=== PATIENT | female | born 1960 | race Caucasian/White ===

== ENCOUNTER 2017-08-25 17:02 | Inpatient (IN) ==
[2017-08-25] MEDS ORDERED: Acetaminophen/Codeine 300/30 MG Tablet PO ONE (18:02)
[2017-08-25] MEDS ORDERED: Ciprofloxacin 400 MG/200 ML 400 MG/200 ML PIGGYBACK IV.SIG ONE (18:04)
[2017-08-25] MEDS ORDERED: Clindamycin 600 mg/NS Premix 600 MG/50 ML PIGGYBACK IV.SIG ONE (18:05)
[2017-08-25] MEDS ORDERED: Sod Chloride 0.9% Inj 1,000 ML IV.SIG ONE (18:06)
--- NOTE | 2017-08-25 18:20 | ED ---
HPI General Chief Complaint: Animal Bite Stated Complaint: Animal Bite Time Seen by Provider: 08/25/17 17:52 Source: patient Mode of arrival: ambulatory Limitations: no limitations History of Present Illness HPI narrative: 67-year-old female presents emergency department for evaluation of a dog bite to the left index finger that occurred yesterday. Says she was bit by her dog yesterday and went to the urgent care facility who prescribed her antibiotics. Says the pharmacies are closed that she took the first antibiotic today. Says that she went back to urgent care this morning because of the increased swelling, pain and erythema. Says that they removed a suture that was in place and they recommended she go to the emergency department for further evaluation and IV antibiotics. Patient says that she is rather anxious because she had to cancel her cruise that she was due to go on tomorrow. Patient says that the pain is 7/10, nonradiating, aching and throbbing. Bending her finger increases her pain significantly and she says she has difficulty doing so because of the swelling. She denies fevers or chills. MD complaint: animal bite Animal: dog (patient's dog) Mechanism: bite Related Data Patient tetanus UTD: Yes (yesterday at urgent care) Home Medications Medication Instructions Recorded Confirmed levothyroxine 75 mcg PO DAILY 08/25/17 08/25/17 lisinopril 5 mg PO DAILY 08/25/17 08/25/17 pravastatin 20 mg PO HS 08/25/17 08/25/17 Allergies Allergy/AdvReac Type Severity Reaction Status Date / Time No Known Allergies Allergy Verified 08/25/17 21:29 Review of Systems Except as stated in HPI: all other systems reviewed are negative PMFSH Medical History Medical History Cyst in hand (Acute) HTN (hypertension) (Acute) High cholesterol (Acute) Hypothyroid (Acute) Surgical History Surgical History S/P LASIK surgery (Acute) S/P foot surgery, right (Acute) Social History Social History Substance History: No History of Abuse Second Hand Smoke Exposure: No Smoking Status: Never smoker How Often Do You Have a Drink Containing Alcohol: Monthly or less Recent Travel in [facility] within the Last 8 Weeks: No Recent Out of Country Travel within the Last 8 Weeks: No Immunization History Tetanus Immunization: <5 Years Hx Influenza Vaccine This Season: Yes Exam Narrative Exam Narrative: GENERAL: Well-developed well-nourished, anxious SKIN: Focused skin assessment warm/dry. HEAD: Atraumatic. Normocephalic. EYES: Pupils equal and round. No scleral icterus. No injection or drainage. ENT: No nasal bleeding or discharge. Mucous membranes pink and moist. NECK: Trachea midline. No JVD. CARDIOVASCULAR: Regular rate and rhythm. No murmur appreciated. RESPIRATORY: No accessory muscle use. Clear to auscultation. Breath sounds equal bilaterally. GASTROINTESTINAL: Abdomen soft, non-tender, nondistended. Hepatic and splenic margins not palpable. MUSCULOSKELETAL: No obvious deformities. No clubbing. No cyanosis. No edema. left index finger- edema with erythema to entire digit, small 4mm laceration, bleeding controlled, no exudate. lymphangiopathic spread to dorsal forearm, slight flexed position, unable to extend by passive or active ROM NEUROLOGICAL: Awake and alert. No obvious cranial nerve deficits. Motor grossly within normal limits. Normal speech. PSYCHIATRIC: Appropriate mood and affect; insight and judgment normal. Course Initial Documented Vital Signs Temperature 98.9 F 08/25/17 17:08 Pulse Rate 113 H 08/25/17 17:08 Respiratory Rate 16 08/25/17 17:08 Blood Pressure 142/85 H 08/25/17 17:08 Pulse Oximetry 100 08/25/17 17:08 Last Documented Vital Signs Temperature 98.5 F 08/26/17 08:00 Pulse Rate 75 08/26/17 08:00 Respiratory Rate 16 08/26/17 08:00 Blood Pressure 118/58 L 08/26/17 08:00 Pulse Oximetry 94 L 08/26/17 08:00 Medical Decision Making [facility] Narrative Medical decision making narrative: 57-year-old female presents emergency department for evaluation of left index finger pain after dog bite that occurred yesterday. She says that her own dog bit her yesterday and she went to urgent care who prescribed her antibiotics. She says that she took 1 dose of medication this morning as the pharmacies were closed last night. She says the left index finger has been increasing in pain, redness and swelling. Vital signs stable. I offered pain medication and she said hydrocodone and other strong pain medications do not usually work for her. Offered Tylenol #3. No relief. Ordered Toradol. Clindamycin and Cipro administered. Pt will be admitted for left index finger cellulitis. There is a concern for developing tenosynovitis/ Kanavel's sign. She has some movement of her PIP but is very limited. I spoke with Dr. Byrne who agreed with the admission. Hand consult upon admission. Differential Diagnosis Differential Diagnosis: Left index finger cellulitis, dog bite, laceration Lab Data Result diagrams: 08/26/17 05:18 08/26/17 05:18 Lab Results 08/25/17 08/25/17 08/26/17 Range/Units 18:35 18:35 05:18 WBC 9.1 5.1 (4.0-11.0) th/mm3 RBC 4.40 4.02 (4.00-5.30) mil/mm3 Hgb 13.1 12.1 (11.6-15.3) gm/dL Hct 39.7 36.2 (35.0-46.0) % MCV 90.2 90.0 (80.0-100.0) fL MCH 29.9 30.0 (27.0-34.0) pg MCHC 33.1 33.4 (32.0-36.0) % RDW 12.6 12.6 (11.6-17.2) % Plt Count 257 215 (150-450) th/mm3 MPV 8.9 9.1 (7.0-11.0) fL Neut % (Auto) 75.0 H 49.6 (16.0-70.0) % Lymph % (Auto) 16.1 36.4 (9.0-44.0) % [place] % (Auto) 8.1 H 11.6 H (0.0-8.0) % Eos % (Auto) 0.6 1.9 (0.0-4.0) % Baso % (Auto) 0.2 0.5 (0.0-2.0) % Neut # (Auto) 6.9 2.5 (1.8-7.7) th/mm3 Lymph # (Auto) 1.5 1.9 (1.0-4.8) th/mm3 [place] # (Auto) 0.7 0.6 (0.0-0.9) th/mm3 Eos # (Auto) 0.1 0.1 (0.0-0.4) th/mm3 Baso # (Auto) 0.0 0.0 (0.0-0.2) th/mm3 WBC Differential . . Differential Comment Auto diff final Auto diff final Sodium 138 (136-145) meq/L Potassium 3.9 (3.5-5.1) meq/L Chloride 103 (98-107) meq/L Carbon Dioxide 23.7 (21.0-32.0) meq/L Anion Gap 11 (5-15) meq/L BUN 11 (7-18) mg/dL Creatinine 0.92 (0.50-1.00) mg/dL Estimated GFR 63 L (>89) mL/min Random Glucose 92 (74-106) mg/dL Calcium 9.7 (8.5-10.1) mg/dL 08/26/17 Range/Units 05:18 WBC (4.0-11.0) th/mm3 RBC (4.00-5.30) mil/mm3 Hgb (11.6-15.3) gm/dL Hct (35.0-46.0) % MCV (80.0-100.0) fL MCH (27.0-34.0) pg MCHC (32.0-36.0) % RDW (11.6-17.2) % Plt Count (150-450) th/mm3 MPV (7.0-11.0) fL Neut % (Auto) (16.0-70.0) % Lymph % (Auto) (9.0-44.0) % [place] % (Auto) (0.0-8.0) % Eos % (Auto) (0.0-4.0) % Baso % (Auto) (0.0-2.0) % Neut # (Auto) (1.8-7.7) th/mm3 Lymph # (Auto) (1.0-4.8) th/mm3 [place] # (Auto) (0.0-0.9) th/mm3 Eos # (Auto) (0.0-0.4) th/mm3 Baso # (Auto) (0.0-0.2) th/mm3 WBC Differential Differential Comment Sodium 144 (136-145) meq/L Potassium 3.8 (3.5-5.1) meq/L Chloride 110 H (98-107) meq/L Carbon Dioxide 23.7 (21.0-32.0) meq/L Anion Gap 10 (5-15) meq/L BUN 11 (7-18) mg/dL Creatinine 0.91 (0.50-1.00) mg/dL Estimated GFR 63 L (>89) mL/min Random Glucose 79 (74-106) mg/dL Calcium 8.8 D (8.5-10.1) mg/dL Discharge Plan Discharge Disposition Patient Disposition: 30 Still Patient Discharge Condition Condition: Stable Discharge Details Diagnosis: Dog bite, Cellulitis Physicians Team ED Provider: John Contreras ED Midlevel Provider: Leonora Pearl Primary Care Provider: Kendrick Hernandez Attending Provider: Edmund Byrne Other Providers: Darion Blount Status ED Status: Left Department Discharge Information Discharge Date/Time: 08/25/17 22:48
[2017-08-25 19:38] LABS: Baso % (Auto) 0.2 % (0.0-2.0); Eos # (Auto) 0.1 th/mm3 (0.0-0.4); Eos % (Auto) 0.6 % (0.0-4.0); Hematocrit 39.7 % (35.0-46.0); Hemoglobin 13.1 gm/dL (11.6-15.3); Lymph # (Auto) 1.5 th/mm3 (1.0-4.8); Lymph % (Auto) 16.1 % (9.0-44.0); Mean Corpuscular HGB Conc 33.1 % (32.0-36.0); Mean Corpuscular Hemoglobin 29.9 pg (27.0-34.0); Mean Corpuscular Volume 90.2 fL (80.0-100.0); Mean Platelet Volume 8.9 fL (7.0-11.0); Mono # (Auto) 0.7 th/mm3 (0.0-0.9); Mono % (Auto) 8.1 % (0.0-8.0); Neut # (Auto) 6.9 th/mm3 (1.8-7.7); Platelet Count 257 th/mm3 (150-450); Red Cell Distribution Width 12.6 % (11.6-17.2); White Blood Count 9.1 th/mm3 (4.0-11.0)
[2017-08-25 20:04] LABS: Calcium 9.7 mg/dL (8.5-10.1); Carbon Dioxide 23.7 meq/L (21.0-32.0); Potassium 3.9 meq/L (3.5-5.1)
[2017-08-25] MEDS ORDERED: Ketorolac Inj 30 MG/ML (IVP) Vial IV.PUSH ONE (20:51)
[2017-08-25] MEDS ORDERED: Temazepam 15 MG Capsule PO PRN (21:46)
--- NOTE | 2017-08-25 22:13 | P.HPIM ---
History of Present Illness Primary Care Physician: Kendrick Hernandez MD Chief Complaint: dog bite History of Present Illness: Patient is a pleasant 67-year-old female with history of hypertension, hypothyroidism, and hyperlipidemia. Patient was bit by her dog yesterday at the distal aspect of her left index finger when patient attempted to take away a bone. Patient reports that her dog is up-to-date on all shots. Patient was seen in urgent care center and prescribed antibiotic. However, patient took only 1 dose of antibiotic today. Patient reports that over the last 24 hours she has had increased pain, redness , and swelling of her left second finger. Patient states that his suture was removed today and she was advised to come to the ER for further evaluation and IV antibiotics. Patient states that redness with going up the anterior aspect of her left forearm. Patient complains of severe pain and difficulty bending her second digit. Patient denies fever chills. Hand surgeon has been consulted by the ER. Patient will be continued on IV antibiotics. Patient will be admitted to [facility] for further evaluation treatment. PMH - Htn - hypothyroid - hyperlipidemia - plantar fascitis PSH - Right foot surgery for plantar fascitis, performed by Dr. 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 [employer] - Never a smoker - No alcohol - No illicit street drugs ALL: NKDA - Diagnosis (1) Dog bite (2) Cellulitis Review of Systems Constitutional: Denies anorexia, Denies body ache(s), Denies chills, Denies fever(s), Denies night sweats, Denies poor appetite, Denies weight gain, Denies weight loss Eyes: Denies blind spots, Denies blurry vision, Denies change in vision, Denies double vision, Denies discharge, Denies loss of peripheral vision, Denies loss of vision, Denies other visual disturbances, Denies pain Ears, Nose, Mouth, and Throat: Denies bleeding gums, Denies difficulty swallowing, Denies dizziness, Denies headache(s), Denies hearing loss, Denies pain with swallowing, Denies poor balance, Denies ringing in the ears, Denies sore throat, Denies throat swelling, Denies tongue swelling Cardiovascular: Denies chest pain, Denies excessive sweating, Denies fainting, Denies fast heart rate, Denies generalized swelling, Denies irregular heart rhythm, Denies leg swelling, Denies lightheadedness, Denies slow heart rate Respiratory: Denies cough, Denies shortness of breath, Denies snoring, Denies wheezing Gastrointestinal: Denies abdominal pain, Denies belching, Denies black, tarry stools, Denies bright, red blood in stools, Denies change in bowel habits, Denies change in stools, Denies coffee ground vomit, Denies constipation, Denies cramping, Denies difficulty swallowing, Denies heartburn, Denies incontinent of stools, Denies loose stools, Denies nausea, Denies pain with swallowing, Denies vomiting, Denies vomiting blood Genitourinary: Denies abnormal vaginal bleeding, Denies blood in urine, Denies difficulty starting urination, Denies difficulty urinating, Denies frequent nighttime urination, Denies painful urination, Denies pelvic pain, Denies side pain, Denies urinary incontinence, Denies urinary hesitancy, Denies urinary urgency Musculoskeletal: Denies abnormal walking, Denies back pain, Denies body aches, Denies decreased muscle mass, Denies joint pain, Denies joint swelling, Denies muscle weakness, Denies neck pain, Denies numbness, Denies stiffness, Denies tingling Skin/Breast: Denies bleeding lesions, Denies change in skin color, Denies changing lesions, Denies itching, Denies lesions, Denies new lesions, Denies non -healing lesions, Denies redness, Denies sensitivity to light, Denies rash, Denies skin pain, Denies skin swelling, Denies skin ulcer, Denies sores, Denies unusual bruising, Denies wounds, Denies yellowing of the skin Neurologic: Denies abnormal hearing, Denies abnormal movements, Denies abnormal speech, Denies abnormal walking, Denies behavioral changes, Denies burning sensations, Denies confusion, Denies dizziness, Denies fainting, Denies frequent falls, Denies headache(s), Denies lack of coordination, Denies localized weakness, Denies loss of vision, Denies memory loss, Denies numbness, Denies other visual disturbances, Denies radiating pain, Denies restless legs, Denies convulsions, Denies seizure-like activity, Denies sensory deficit, Denies tingling/numbness/burning sensations, Denies tremor(s), Denies unsteadiness, Denies weakness Psychiatric: Denies abnormal sleep pattern, Denies anxiety, Denies behavioral changes, Denies change in appetite, Denies confusion, Denies depression, Denies difficulty concentrating, Denies hearing things others do not hear, Denies irritability, Denies lack of enjoyment, Denies memory loss, Denies mood swings, Denies panic attacks, Denies paranoia, Denies seeing things others do not see, Denies thoughts of hurting/killing others, Denies thoughts of hurting/killing yourself Endocrine: Denies cold intolerance, Denies excessive sweating, Denies fatigue, Denies flushing, Denies heat intolerance, Denies increased hunger, Denies increased thirst, Denies increased urination, Denies rapid, pounding, or irregular heartbeat Hematologic/Lymphatic: Denies easy bleeding, Denies easy bruising, Denies enlarged lymph nodes Allergic/Immunologic: Denies hives, Denies lip swelling, Denies throat swelling , Denies wheezing PMFSH - History History Provided By: Patient - Medical History Medical History: Medical History (Last Updated 08/25/17 @ 18:01 by [facility]) Cyst in hand HTN (hypertension) High cholesterol Hypothyroid - Surgical History Surgical History: Surgical History (Last Updated 08/25/17 @ 18:01 by [facility]) S/P LASIK surgery S/P foot surgery, right - Tobacco History Second Hand Smoke Exposure: No Tobacco Use In Past 30 Days: No Smoking Status: Never smoker - Alcohol History How Often Do You Have a Drink Containing Alcohol: Monthly or less - Substance Use History Substance History: No History of Abuse - Travel History Recent Travel in the [place] Within the Last 8 Weeks: No Recent Travel Out of the Country Within the Last 8 Weeks: No - Immunization History Tetanus Immunization: <5 Years Hx Influenza Vaccine This Season: Yes Medications and Allergies Active Medications: Active Medications Al Hydroxide/Mg Hydroxide (Milk Of Magnesia Liq) 30 ml PO Q12H PRN PRN Reason: Mild Constipation Clindamycin/Sodium Chloride (Cleocin 600 Mg/Ns Premix) 600 mg in 50 mls @ 100 mls/hr IV.SIG Q8H JASIEL Ketorolac Tromethamine (Toradol Inj) 30 mg IV.PUSH Q6H PRN PRN Reason: PAIN 6-10;IF UNABLE TO TAKE PO Levothyroxine Sodium (Synthroid) 75 mcg PO DAILY JASIEL Lisinopril (Prinivil) 5 mg PO DAILY JASIEL Ondansetron HCl (Zofran Inj) 4 mg IV.PUSH Q6H PRN PRN Reason: NAUSEA OR VOMITING Oxycodone/Acetaminophen (Percocet 7.5/325 Mg) 1 tab PO Q6H PRN PRN Reason: pain 1-5 Pravastatin Sodium (Pravachol) 20 mg PO HS JASIEL Senna/Docusate Sodium (Chelsea-Colace) 1 tab PO BID JASIEL Temazepam (Restoril) 15 mg PO HS PRN PRN Reason: INSOMNIA Allergies Allergy/AdvReac Type Severity Reaction Status Date / Time No Known Allergies Allergy Verified 08/25/17 21:29 Home Medications Medication Instructions Recorded Confirmed Type levothyroxine 75 mcg PO DAILY 08/25/17 08/25/17 History lisinopril 5 mg PO DAILY 08/25/17 08/25/17 History pravastatin 20 mg PO HS 08/25/17 08/25/17 History Exam Vital signs: Vital Signs 08/25/17 17:08 Temperature 98.9 F Pulse Rate 113 H Respiratory Rate 16 Blood Pressure 142/85 H Pulse Oximetry 100 Intake & Output 08/25/17 08/25/17 08/26/17 06:59 18:59 06:59 Weight 67.132 kg Narrative: GENERAL: This is a well-nourished, well-developed patient, in no apparent distress. CARDIOVASCULAR: Regular rate and rhythm without murmurs, gallops, or rubs. RESPIRATORY: Clear to auscultation. Breath sounds equal bilaterally. No wheezes , rales, or rhonchi. GASTROINTESTINAL: Abdomen soft, non-tender, nondistended. Normal active bowel sounds MUSCULOSKELETAL: Extremities without clubbing, cyanosis, or edema. NEURO: Alert & Oriented x4 to person, place, time, situation. Moves all ext x4 EXT: erythema and edema at right second digit. There are markings at the anterior surface of pt's left forearm but currently no erythema. Per pt there erythema tracking up the right forearm earlier in the day 08/25 Results - Labs CBC & Chem 7: 08/25/17 18:35 08/25/17 18:35 Labs: Short CBC 08/25/17 Range/Units 18:35 WBC 9.1 (4.0-11.0) th/mm3 Hgb 13.1 (11.6-15.3) gm/dL Hct 39.7 (35.0-46.0) % Plt Count 257 (150-450) th/mm3 BMP 08/25/17 18:35 Sodium 138 Potassium 3.9 Chloride 103 Carbon Dioxide 23.7 BUN 11 Creatinine 0.92 Calcium 9.7 Caprini VTE Risk Assessment Caprini VTE Risk Assessment: No/Low Risk (score <= 1) Caprini Risk Assessment Model: Point Value = 1 Point Value = 2 Point Value = 3 Point Value = 5 Age 41-60 Minor surgery BMI > 25 kg/m2 Swollen legs Varicose veins or History of unexplained or recurrent spontaneous Oral contraceptives or hormone replacement Sepsis (< 1 month) Serious lung disease, including pneumonia (< 1 month) Abnormal pulmonary function Acute myocardial infarction Congestive heart failure (< 1 month) History of inflammatory bowel disease Medical patient at bed rest Age 61-74 Arthroscopic surgery Major open surgery (> 45 min) Laparoscopic surgery (> 45 min) Malignancy Confined to bed (> 72 hours) Immobilizing plaster cast Central venous access Age >= 75 History of VTE Family history of VTE Factor V Leiden Prothrombin [id number] Lupus anticoagulant Anticardiolipin antibodies Elevated serum homocysteine Heparin-induced thrombocytopenia Other congenital or acquired thrombophilia Stroke (< 1 month) Elective arthroplasty Hip, pelvis, or leg fracture Acute spinal cord injury (< 1 month) Prophylaxis Regimen: Total Risk Factor Score Risk Level Prophylaxis Regimen 0-1 Low Early ambulation 2 Moderate Order ONE of the following: *Sequential Compression Device (SCD) *Heparin 5000 units SQ BID 3-4 Higher Order ONE of the following medications: *Heparin 5000 units SQ TID *Enoxaparin/Lovenox 40 mg SQ daily (WT < 150 kg, CrCl > 30 mL/min) *Enoxaparin/Lovenox 30 mg SQ daily (WT < 150 kg, CrCl > 10-29 mL/min) *Enoxaparin/Lovenox 30 mg SQ BID (WT < 150 kg, CrCl > 30 mL/min) AND/OR *Sequential Compression Device (SCD) 5 or more Highest Order ONE of the following medications: *Heparin 5000 units SQ TID (Preferred with Epidurals) *Enoxaparin/Lovenox 40 mg SQ daily (WT < 150 kg, CrCl > 30 mL/min) *Enoxaparin/Lovenox 30 mg SQ daily (WT < 150 kg, CrCl > 10-29 mL/min) *Enoxaparin/Lovenox 30 mg SQ BID (WT < 150 kg, CrCl > 30 mL/min) AND *Sequential Compression Device (SCD) Assessment and Plan - Assessment (1) Dog bite Code(s): W54.0XXA - Bitten by dog, initial encounter Status: Acute Plan: Patient is a pleasant 67-year-old female with history of hypertension, hypothyroidism, and hyperlipidemia. Patient was bit by her dog yesterday at the distal aspect of her left index finger when patient attempted to take away a bone. Patient reports that her dog is up-to-date on all shots. Patient was seen in urgent care center and prescribed antibiotic. However, patient took only 1 dose of antibiotic today. Patient reports that over the last 24 hours she has had increased pain, redness , and swelling of her left second finger. Patient states that his suture was removed today and she was advised to come to the ER for further evaluation and IV antibiotics. Patient states that redness with going up the anterior aspect of her left forearm. Patient complains of severe pain and difficulty bending her second digit. Patient denies fever chills. Hand surgeon has been consulted by the ER. Patient will be continued on IV antibiotics. Patient will be admitted to [facility] for further evaluation treatment. - possible tenosynovitis - Await Consultation by hand surgeon - continue IV clindamycin - toradol/percocet prn pain - NPO after MN - SCDs for DVT prophylaxis - supportive care HTN - continue outpt lisinopril Hypothyroid - continue levothyroxine Hyperlipidemia - continue statin (2) Cellulitis Code(s): L03.90 - Cellulitis, unspecified Status: Acute Plan: - see above (1) Dog bite Qualifiers: Encounter type: subsequent encounter Qualified Code(s): W54.0XXD - Bitten by dog, subsequent encounter (2) Cellulitis Qualifiers: Site of cellulitis: extremity Site of cellulitis of extremity: finger Laterality: left Qualified Code(s): L03.012 - Cellulitis of left finger
--- NOTE | 2017-08-25 23:10 | MB ---
cc: Darion Blount MD, Srikanth MD DATE: 08/25/2017 REASON FOR CONSULTATION: Dog bite and infection left index finger. HISTORY OF PRESENT ILLNESS: The patient is a 67-year-old right-hand dominant female who presented to the ED with complaints of dog bite to the left index finger yesterday. The patient states she was bitten by her own dog at 2 p.m. yesterday. The patient was seen initially at an outside urgent care. She was put on p.o. antibiotics and she presented to the ED today with worsening symptoms of pain, swelling and redness involving the left index finger. The patient states she had suturing of the laceration at urgent care and had sutures removed. She also complains of redness, streaking to the forearm region. Denies any fever. Denies any chills. Denies any numbness. PAST MEDICAL HISTORY: Significant for hypertension and hypothyroidism. PAST SURGICAL HISTORY: Significant for right foot surgery and removal of cyst from the right hand. LABORATORY DATA: Her lab work was reviewed. She has a white count of 9.1 and neutrophil shift of 75%. PHYSICAL EXAMINATION: The patient is alert and oriented x3. Examination of his left index finger reveals dog bite wounds over the volar and radial aspect of the pulp region of the index finger. The left index finger is swollen diffusely with redness extending to the A1 du region. Diffuse tenderness noted along the flexor tendon sheath and over the dorsal aspect of the finger. Range of motion of the index finger is limited and painful. She has intact distal circulation. She has intact distal sensation. She also has some streaking erythema over the volar aspect of the distal forearm. No drainage noted from the bite wounds. She also has multiple bite mckenna over the dorsal aspect of the finger. ASSESSMENT: A 57-year-old female with a dog bite to the left index finger with questionable flexor tenosynovitis. PLAN: Take the patient emergently for incision and drainage of flexor tendon sheath, left index finger. The patient been explained the risk and benefits of the procedure. We will continue with IV antibiotics and limb elevation. Darion Blount MD SE/ , 10:52 PM , 11:10 PM
[2017-08-26] MEDS: Clindamycin 600 mg/NS Premix 600 MG/50 ML PIGGYBACK IV.SIG SCH ×3 (05:13→21:01)
[2017-08-26] MEDS: Levothyroxine 75 MCG Tablet PO SCH (05:13)
[2017-08-26 07:17] LABS: Baso % (Auto) 0.5 % (0.0-2.0); Eos # (Auto) 0.1 th/mm3 (0.0-0.4); Eos % (Auto) 1.9 % (0.0-4.0); Hematocrit 36.2 % (35.0-46.0); Hemoglobin 12.1 gm/dL (11.6-15.3); Lymph # (Auto) 1.9 th/mm3 (1.0-4.8); Lymph % (Auto) 36.4 % (9.0-44.0); Mean Corpuscular HGB Conc 33.4 % (32.0-36.0); Mean Platelet Volume 9.1 fL (7.0-11.0); Mono # (Auto) 0.6 th/mm3 (0.0-0.9); Mono % (Auto) 11.6 % (0.0-8.0); Neut # (Auto) 2.5 th/mm3 (1.8-7.7); Neut % (Auto) 49.6 % (16.0-70.0); Platelet Count 215 th/mm3 (150-450); Red Blood Count 4.02 mil/mm3 (4.00-5.30); Red Cell Distribution Width 12.6 % (11.6-17.2); White Blood Count 5.1 th/mm3 (4.0-11.0)
[2017-08-26 07:40] LABS: Calcium 8.8 mg/dL (8.5-10.1); Carbon Dioxide 23.7 meq/L (21.0-32.0); Potassium 3.8 meq/L (3.5-5.1)
[2017-08-26] MEDS ORDERED: Neomycin/Polymyxin G.U. Irrigant 1 ML Ampul ONE (09:59)
[2017-08-26] MEDS ORDERED: Lidocaine PF 2% Inj 10 ML Ampul ONE (10:27)
[2017-08-26] MEDS ORDERED: Bupivacaine PF 0.5% Inj 30 ML Vial ONE (10:27)
[2017-08-26] MEDS ORDERED: Ampicillin/Sulbactam Inj 3 GM in Sodium Chloride 0.9% Inj 100 ML IV.SIG ONE (11:00)
--- NOTE | 2017-08-26 11:18 | P.OP ---
- Preoperative Diagnosis (1) Infected dog bite of left index finger (2) Infection of flexor tendon sheath Comment: left index finger - Postoperative Diagnosis (1) Infected dog bite of left index finger (2) Infection of flexor tendon sheath Comment: left index finger Date of procedure: 08/26/17 Procedure: incision and drainage of left index finger pulp flexor tendon sheath wash and drainage left index finger Anesthesia: GETA Surgeon: Darion Blount MD Estimated blood loss (mL): 5 Tourniquet time (min): 35 Pathology: other (swab 1. left index pulp. swab 2. flexor tendon sheath left index finger)
[2017-08-26] MEDS ORDERED: *Meperidine Inj 25 MG/ML Vial PERIprocedural Use ONLY ONE (11:20)
[2017-08-26] MEDS ORDERED: fentaNYL Citrate Inj 100 MCG/2 ML Ampul ONE (11:25)
[2017-08-26] MEDS ORDERED: Lidocaine PF 1% Inj 5 ML Syringe INFILTRATN ONE (12:00)
[2017-08-26] MEDS ORDERED: Phenylephrine/NS 1000 MCG/10ML Syringe IV.PUSH ONE (12:00)
[2017-08-26] MEDS ORDERED: Ketorolac Inj 30 MG/ML (IVP) Vial IV.PUSH ONE (12:00)
[2017-08-26] MEDS: Senna/Docusate Sodium 8.6/50 MG Tablet PO SCH ×2 (12:28→20:54)
[2017-08-26] MEDS: Lisinopril 5 MG Tablet PO SCH (12:29)
--- NOTE | 2017-08-26 12:29 | MP ---
cc: Darion Blount MD DATE OF OPERATION: 08/26/2017 DATE OF SURGERY: 08/26/2017 PREOPERATIVE DIAGNOSIS: Dog bite with infection of left index finger with flexor tendon sheath involvement. POSTOPERATIVE DIAGNOSIS: Dog bite with infection of left index finger pulp and infection of the flexor tendon sheath left index finger. PROCEDURE PERFORMED: Incision and drainage, left index finger pulp and wash and drainage, left index finger flexor tendon sheath. SURGEON: Darion Blount MD ANESTHESIA: General. ESTIMATED BLOOD LOSS: 5 mL. TOURNIQUET TIME: 35 minutes at 250 mmHg. SPECIMENS: Specimen was sent for culture and sensitivity and Gram stain. The first wall swab from the left index finger pulp. The second swab was from the flexor tendon sheath, left index finger from the palm. DISPOSITION: To PACU stable. INDICATIONS FOR PROCEDURE: The patient is a 57-year-old right-hand dominant female who presented to the ED with complaints of a dog bite to the left index finger with infection for the past 2 days. She was seen at urgent care and had suturing of laceration. She presented with pain, swelling, and redness involving the left index finger. On examination, she had flexion deformity of the left index finger with associated swelling and redness. She had diffuse tenderness along the flexor tendon sheath and range of motion of the index finger was limited and painful. She had bite wounds over the left index finger pulp. Clinically, she was diagnosed with left index finger infection with flexor tendon sheath involvement. She was consented for incision and drainage of the left index finger along with drainage of the flexor tendon sheath. The patient was explained the risks and benefits of the procedure. PROCEDURE IN DETAIL: The patient was brought to the operating room under general anesthesia. The left upper extremity was sterilely prepped and draped. Incision site was marked along the volar aspect of the distal interphalangeal joint in a zigzag fashion, incorporating the bite wound, which was along the radial aspect of the pulp. Another incision site was marked in an oblique fashion at the proximal aspect of the A1 du region of the index finger, measuring about 2 cm. After limb elevation, tourniquet was inflated to 250 mmHg. Attention was initially directed to the pulp region. Incision was made over the proposed incision site. The laceration was incorporated in the incision and skin flaps were elevated. There was evidence of purulent material within the pulp region. The material was sent for culture and sensitivity. On further exploration, there was involvement of the flexor tendon sheath with purulence within the flexor tendon sheath. The flexor tendon sheath was opened distal to the A4 du with evidence of purulent material in the region. The decision was made to proceed with drainage of flexor tendon sheath. An incision was made over the A1 du region of the index finger. Soft tissue dissection was carried out, exposing the A1 du. The A1 du was released in a proximal to distal direction. There was evidence of purulent material within the flexor tendon sheath with inflamed tenosynovium. Excisional debridement of flexor tenosynovium was carried out. Thorough wash of the wound and the pulp was initially carried out using normal saline mixed with irrigant. This was then followed by proximal to distal and drainage of the flexor tendon sheath using a vein cannula, about 500 mL were used until the effluent coming from the distal aspect of the incision was clear. A total liter of solution was used. Packing of the wounds were carried out with 1/4-inch iodoform packing material. The skin flaps were loosely approximated using 5-0 nylon in a horizontal mattress interrupted fashion. Tourniquet was deflated at 35 minutes. The patient had good distal circulation after release of the tourniquet. A bulky hand dressing was applied which was held in place by Sof-Rol and bias hand wrap. The patient was recovered and sent to recovery in stable condition. We will keep the limb elevated and continue the IV antibiotics and change the packing tomorrow. Darion Blount MD SE/ALINA , 11:23 AM , 12:27 PM
[2017-08-26] MEDS: Ketorolac Inj 30 MG/ML (IVP) Vial IV.PUSH PRN (14:50)
--- NOTE | 2017-08-26 15:37 | P.PNIM ---
Subjective Interval history: Pt underwent I&D of the left index finger infection today Pain is currently well controlled Physical Exam Vital signs: Vital Signs 08/25/17 17:08 08/25/17 20:55 08/25/17 21:16 Temperature 98.9 F 98 F Pulse Rate 113 H 94 H 93 H Respiratory Rate 16 16 18 Blood Pressure 142/85 H 134/61 128/60 Pulse Oximetry 100 97 97 08/26/17 00:00 08/26/17 04:00 08/26/17 08:00 Temperature 98.2 F 97.8 F 98.5 F Pulse Rate 91 H 76 75 Respiratory Rate 16 16 16 Blood Pressure 132/60 124/69 118/58 L Pulse Oximetry 98 97 94 L 08/26/17 11:20 08/26/17 11:30 08/26/17 11:45 Temperature 97.8 F Pulse Rate 110 H 91 H 85 Respiratory Rate 12 14 14 Blood Pressure 120/64 135/67 125/67 Pulse Oximetry 98 99 100 08/26/17 12:00 Temperature 97.3 F L Pulse Rate 84 Respiratory Rate 16 Blood Pressure 127/58 L Pulse Oximetry 98 Intake & Output 08/25/17 08/26/17 08/26/17 18:59 06:59 18:59 Intake Total 50 / 50 500 / 500 Output Total 5 / 5 Balance 50 / 50 495 / 495 Weight 67.132 kg 67.4 kg Intake: IV 50 / 50 Cleocin 600 mg/NS Premix 600 mg 50 / 50 In 50 ml @ 100 mls/hr IV.SIG Q8H JASIEL Rx#:[id number] Oral 0 / 0 Anesthesia Amount 500 / 500 Output: Estimated Blood Loss 5 / 5 Other: # Voids 0 # Bowel Movements 0 Weight On Admission 66.8 kg Narrative: GENERAL: NAD, AAOx3 CARDIO: Regular RESP: Breath sounds equal bilaterally. ABD: +BS, soft, non-tender, nondistended. EXT: Left hand bandages are c/d/i Results - Labs CBC & Chem 7: 08/26/17 05:18 08/26/17 05:18 Assessment and Plan - Assessment (1) Dog bite Code(s): W54.0XXA - Bitten by dog, initial encounter Status: Acute Plan: Dog Bite Left index finger infection, possible tenosynovitis - Patient is a 67 y/o female with hypertension, hypothyroidism, and hyperlipidemia. - Patient was bit by her dog prior to admission at the distal aspect of her left index finger when patient attempted to take away a bone. Patient reports that her dog is up-to-date on all shots. Patient was seen in urgent care center the wound was sutured and she was prescribed antibiotic. However, patient took only 1 dose of antibiotic the day of admission. Patient reported that she had increased pain, redness, and swelling of her left second finger. Patient states that his suture was removed the day of admission and she was advised to come to the ER for further evaluation and IV antibiotics. - Pt was started on IV Clindamycin at admission - Hand surgeon was consulted - Pt underwent incision and drainage of left index finger pulp and wash and drainage and left index finger flexor tendon sheath. - continue IV clindamycin - Toradol/Percocet prn pain - SCDs for DVT prophylaxis - Supportive care HTN - continue outpt lisinopril Hypothyroid - continue levothyroxine Hyperlipidemia - continue statin (2) Cellulitis Code(s): L03.90 - Cellulitis, unspecified Status: Acute Plan: - see above - Attending Attestation Patient examined. Assessment and plan formulated with Cristina Kaplan PA-C. I agree with the above. (1) Dog bite Qualifiers: Encounter type: subsequent encounter Qualified Code(s): W54.0XXD - Bitten by dog, subsequent encounter (2) Cellulitis Qualifiers: Site of cellulitis: extremity Site of cellulitis of extremity: finger Laterality: left Qualified Code(s): L03.012 - Cellulitis of left finger
--- NOTE | 2017-08-26 16:50 | OTSOAPIP ---
TIME SESSION COMPLETED: 1220 RECEIVED OCCUPATIONAL THERAPY ORDERS FOR EVALUATION. UPON ARRIVAL, PATIENT JUST RETURNING FROM PROCEDURE FOR LEFT SECOND DIGIT. PATIENT WITH SIGNIFICANT BANDAGING OVER ENTIRE LEFT HAND AND WRIST. WILL ALLOW PATIENT TO REST AT THIS TIME AND REATTEMPT NEXT DAY. WILL AWAIT FURTHER CLARIFICATION ORDERS FROM PHYSICIANS FOR TREATMENT OF LEFT SECOND DIGIT AND ANY RESTRICTIONS. INTERDISCIPLINARY COMMUNICATION: REVIEWED ELECTRONIC MEDICAL RECORD Therapist: BHARTI Owen/Ino Signature on file
[2017-08-27] MEDS: Ketorolac Inj 30 MG/ML (IVP) Vial IV.PUSH PRN (04:05)
[2017-08-27] MEDS: Levothyroxine 75 MCG Tablet PO SCH (05:07)
[2017-08-27] MEDS: Clindamycin 600 mg/NS Premix 600 MG/50 ML PIGGYBACK IV.SIG SCH ×3 (05:07→21:15)
[2017-08-27] MEDS: Lisinopril 5 MG Tablet PO SCH (09:32)
[2017-08-27] MEDS: Senna/Docusate Sodium 8.6/50 MG Tablet PO SCH ×2 (09:32→20:39)
--- NOTE | 2017-08-27 10:30 | P.PNIM ---
Subjective Interval history: Pt without any new complaints She is anxious for discharge but is understanding if she needs to stay longer for continued surgical monitoring. Physical Exam Vital signs: Vital Signs 08/26/17 11:20 08/26/17 11:30 08/26/17 11:45 Temperature 97.8 F Pulse Rate 110 H 91 H 85 Respiratory Rate 12 14 14 Blood Pressure 120/64 135/67 125/67 Pulse Oximetry 98 99 100 08/26/17 12:00 08/26/17 16:00 08/26/17 20:00 Temperature 97.3 F L 98.5 F 97.6 F Pulse Rate 84 88 108 H Respiratory Rate 16 16 17 Blood Pressure 127/58 L 104/59 L 114/59 L Pulse Oximetry 98 94 L 96 08/27/17 00:00 08/27/17 04:00 08/27/17 08:00 Temperature 98.2 F 97.8 F 97.0 F L Pulse Rate 71 90 79 Respiratory Rate 16 16 16 Blood Pressure 109/55 L 116/59 L 124/57 L Pulse Oximetry 96 99 97 Intake & Output 08/26/17 08/27/17 08/27/17 18:59 06:59 18:59 Intake Total 930 / 930 530 / 530 Output Total 1405 / 1405 Balance -475 / -475 530 / 530 Weight 67.8 kg Intake: IV 50 / 50 50 / 50 Cleocin 600 mg/NS Premix 600 mg 50 / 50 50 / 50 In 50 ml @ 100 mls/hr IV.SIG Q8H JASIEL Rx#:[id number] Oral 380 / 380 480 / 480 Anesthesia Amount 500 / 500 Output: Urine 1400 / 1400 Estimated Blood Loss 5 / 5 Other: # Voids 1 # Bowel Movements 1 Narrative: GENERAL: NAD, AAOx3 CARDIO: Regular RESP: Breath sounds equal bilaterally. ABD: +BS, soft, non-tender, nondistended. EXT: Left hand bandages are c/d/i Results - Labs CBC & Chem 7: 08/26/17 05:18 08/26/17 05:18 Microbiology 08/26/17 10:45 Tissue - Finger Gram Stain - Final 08/26/17 10:34 Wound - Finger Gram Stain - Final Assessment and Plan - Assessment (1) Dog bite Code(s): W54.0XXA - Bitten by dog, initial encounter Status: Acute Plan: Dog Bite Left index finger infection, possible tenosynovitis - Patient is a 67 y/o female with hypertension, hypothyroidism, and hyperlipidemia. - Patient was bit by her dog prior to admission at the distal aspect of her left index finger when patient attempted to take away a bone. Patient reports that her dog is up-to-date on all shots. Patient was seen in urgent care center the wound was sutured and she was prescribed antibiotic. However, patient took only 1 dose of antibiotic the day of admission. Patient reported that she had increased pain, redness, and swelling of her left second finger. Patient states that his suture was removed the day of admission and she was advised to come to the ER for further evaluation and IV antibiotics. - Pt was started on IV Clindamycin at admission - Hand surgeon was consulted - Pt underwent incision and drainage of left index finger pulp and wash and drainage and left index finger flexor tendon sheath on 08/26/17 - continue IV clindamycin - Change pain meds to Ultram/Percocet prn pain - The case was discussed between Dr. Byrne and Dr. Blount on 08/[address] March wants to continue to monitor the pts wound here at the hospital. He needs to remove the pts packing at bedside and re-evaluate. - This was discussed with the pt. - SCDs for DVT prophylaxis - Supportive care HTN - continue outpt lisinopril Hypothyroid - continue levothyroxine Hyperlipidemia - continue statin (2) Cellulitis Code(s): L03.90 - Cellulitis, unspecified Status: Acute Plan: - see above - Plan Patient examined. Assessment and plan formulated with Cristina Kaplan PA-C. I agree with the above. Case d/w Dr. Blount (08/27). He will reevaluate wound/packing later today. Pt will need additional 1-2 days of hospitalization on IV ABX. (1) Dog bite Qualifiers: Encounter type: subsequent encounter Qualified Code(s): W54.0XXD - Bitten by dog, subsequent encounter (2) Cellulitis Qualifiers: Site of cellulitis: extremity Site of cellulitis of extremity: finger Laterality: left Qualified Code(s): L03.012 - Cellulitis of left finger
--- NOTE | 2017-08-27 12:37 | P.PN ---
Subjective Interval history: complains of mild pain no fever no numbness Physical Exam Vital signs: Vital Signs 08/26/17 16:00 08/26/17 20:00 08/27/17 00:00 Temperature 98.5 F 97.6 F 98.2 F Pulse Rate 88 108 H 71 Respiratory Rate 16 17 16 Blood Pressure 104/59 L 114/59 L 109/55 L Pulse Oximetry 94 L 96 96 08/27/17 04:00 08/27/17 08:00 Temperature 97.8 F 97.0 F L Pulse Rate 90 79 Respiratory Rate 16 16 Blood Pressure 116/59 L 124/57 L Pulse Oximetry 99 97 Intake & Output 08/26/17 08/27/17 08/27/17 18:59 06:59 18:59 Intake Total 930 / 930 530 / 530 Output Total 1405 / 1405 Balance -475 / -475 530 / 530 Weight 67.8 kg Intake: IV 50 / 50 50 / 50 Cleocin 600 mg/NS Premix 600 mg 50 / 50 50 / 50 In 50 ml @ 100 mls/hr IV.SIG Q8H JASIEL Rx#:[id number] Oral 380 / 380 480 / 480 Anesthesia Amount 500 / 500 Output: Urine 1400 / 1400 Estimated Blood Loss 5 / 5 Other: # Voids 1 # Bowel Movements 1 Narrative: examination of the left hand: intact dressing packing in place decreased swelling minimal drainage intact circulation and sensation gram stain: few wbc's Results - Labs CBC & Chem 7: 08/26/17 05:18 08/26/17 05:18 Microbiology 08/26/17 10:45 Tissue - Finger Gram Stain - Final 08/26/17 10:34 Wound - Finger Gram Stain - Final Assessment and Plan - Plan packing pulled out a cm dry dressing applied will pull out the packing tomorrow range of motion exercises limb elevation hand surgery will follow plan for discharge on monday
[2017-08-28 05:36] LABS: Baso % (Auto) 0.5 % (0.0-2.0); Eos # (Auto) 0.1 th/mm3 (0.0-0.4); Eos % (Auto) 1.8 % (0.0-4.0); Hematocrit 36.9 % (35.0-46.0); Hemoglobin 12.3 gm/dL (11.6-15.3); Lymph # (Auto) 2.9 th/mm3 (1.0-4.8); Lymph % (Auto) 38.4 % (9.0-44.0); Mean Corpuscular HGB Conc 33.5 % (32.0-36.0); Mean Corpuscular Hemoglobin 30.3 pg (27.0-34.0); Mean Corpuscular Volume 90.6 fL (80.0-100.0); Mean Platelet Volume 9.2 fL (7.0-11.0); Mono # (Auto) 0.6 th/mm3 (0.0-0.9); Mono % (Auto) 7.3 % (0.0-8.0); Platelet Count 235 th/mm3 (150-450); Red Blood Count 4.07 mil/mm3 (4.00-5.30); Red Cell Distribution Width 12.7 % (11.6-17.2); White Blood Count 7.6 th/mm3 (4.0-11.0)
[2017-08-28] MEDS: Levothyroxine 75 MCG Tablet PO SCH (05:36)
[2017-08-28] MEDS: Clindamycin 600 mg/NS Premix 600 MG/50 ML PIGGYBACK IV.SIG SCH ×2 (05:36→14:20)
[2017-08-28 05:58] LABS: Calcium 8.8 mg/dL (8.5-10.1); Carbon Dioxide 27.7 meq/L (21.0-32.0); Potassium 4.1 meq/L (3.5-5.1)
[2017-08-28] MEDS: Lisinopril 5 MG Tablet PO SCH (09:24)
[2017-08-28] MEDS: Senna/Docusate Sodium 8.6/50 MG Tablet PO SCH ×2 (09:25→21:12)
--- NOTE | 2017-08-28 09:58 | P.PNIM ---
Subjective Interval history: doing ok. no new complaints Physical Exam Vital signs: Vital Signs 08/27/17 12:00 08/27/17 16:00 08/27/17 20:00 Temperature 97.2 F L 97.7 F Pulse Rate 76 80 74 Respiratory Rate 16 16 20 Blood Pressure 126/60 122/64 128/83 Pulse Oximetry 97 98 97 08/28/17 00:00 08/28/17 04:00 08/28/17 08:00 Temperature 97.3 F L 97.6 F 97.7 F Pulse Rate 82 80 90 Respiratory Rate 18 18 20 Blood Pressure 120/74 121/78 130/82 Pulse Oximetry 95 97 97 Intake & Output 08/27/17 08/28/17 08/28/17 18:59 06:59 18:59 Intake Total 430 / 430 1010 / 1010 Output Total 3000 / 3000 Balance 430 / 430 -1989 / Weight 127.6 kg Intake: IV 50 / 50 50 / 50 Cleocin 600 mg/NS Premix 600 mg 50 / 50 50 / 50 In 50 ml @ 100 mls/hr IV.SIG Q8H JASIEL Rx#:[id number] Oral 380 / 380 960 / 960 Output: Urine 3000 / 3000 Other: # Voids 3 6 # Bowel Movements 0 left index finger heavily bandaged heart reg lung cta abd s/nt ext no edema Results - Labs CBC & Chem 7: 08/28/17 04:30 08/28/17 04:30 Laboratory Results - last 24 hr 08/28/17 08/28/17 04:30 04:30 WBC 7.6 RBC 4.07 Hgb 12.3 Hct 36.9 MCV 90.6 MCH 30.3 MCHC 33.5 RDW 12.7 Plt Count 235 MPV 9.2 Neut % (Auto) 52.0 Lymph % (Auto) 38.4 [place] % (Auto) 7.3 Eos % (Auto) 1.8 Baso % (Auto) 0.5 Neut # (Auto) 4.0 Lymph # (Auto) 2.9 [place] # (Auto) 0.6 Eos # (Auto) 0.1 Baso # (Auto) 0.0 WBC Differential . Differential Comment Auto diff final Sodium 143 Potassium 4.1 Chloride 109 H Carbon Dioxide 27.7 Anion Gap 6 BUN 12 Creatinine 1.08 H Estimated GFR 52 L Random Glucose 84 Calcium 8.8 Microbiology 08/26/17 10:45 Tissue - Finger Gram Stain - Final 08/26/17 10:45 Tissue - Finger Wound Culture - Preliminary No growth in 48 hours 08/26/17 10:34 Wound - Finger Gram Stain - Final 08/26/17 10:34 Wound - Finger Wound Culture - Preliminary No growth in 24 hours Assessment and Plan - Assessment (1) Dog bite Code(s): W54.0XXA - Bitten by dog, initial encounter Status: Acute Plan: Dog Bite Left index finger infection, possible tenosynovitis - Patient is a 67 y/o female with hypertension, hypothyroidism, and hyperlipidemia. - Patient was bit by her dog prior to admission at the distal aspect of her left index finger when patient attempted to take away a bone. Patient reports that her dog is up-to-date on all shots. Patient was seen in urgent care center the wound was sutured and she was prescribed antibiotic. However, patient took only 1 dose of antibiotic the day of admission. Patient reported that she had increased pain, redness, and swelling of her left second finger. Patient states that his suture was removed the day of admission and she was advised to come to the ER for further evaluation and IV antibiotics. - Pt was started on IV Clindamycin at admission - Hand surgeon was consulted - Pt underwent incision and drainage of left index finger pulp and wash and drainage and left index finger flexor tendon sheath on 08/26/17 - continue IV clindamycin - Changed pain meds to Ultram/Percocet prn pain - SCDs for DVT prophylaxis - Supportive care await reevaluate by Hand Surgery today and packing removal. f/u pending cx's cont abx. anticipate dc home tomorrow. HTN - continue outpt lisinopril Hypothyroid - continue levothyroxine Hyperlipidemia - continue statin (2) Cellulitis Code(s): L03.90 - Cellulitis, unspecified Status: Acute Plan: - see above (1) Dog bite Qualifiers: Encounter type: subsequent encounter Qualified Code(s): W54.0XXD - Bitten by dog, subsequent encounter (2) Cellulitis Qualifiers: Site of cellulitis: extremity Site of cellulitis of extremity: finger Laterality: left Qualified Code(s): L03.012 - Cellulitis of left finger
[2017-08-28] MEDS ORDERED: Ibuprofen 600 MG Tablet PO PRN (17:25)
--- NOTE | 2017-08-28 17:45 | P.PN ---
Subjective Interval history: complains of mild dizziness no fever complains of pain over the index finger no numbness Physical Exam Vital signs: Vital Signs 08/27/17 20:00 08/28/17 00:00 08/28/17 04:00 Temperature 97.3 F L 97.6 F Pulse Rate 74 82 80 Respiratory Rate 20 18 18 Blood Pressure 128/83 120/74 121/78 Pulse Oximetry 97 95 97 08/28/17 08:00 08/28/17 12:00 08/28/17 14:36 Temperature 97.7 F 97.9 F 97.3 F L Pulse Rate 90 92 H 94 H Respiratory Rate 20 20 Blood Pressure 130/82 120/81 100/53 L Pulse Oximetry 97 97 97 Intake & Output 08/27/17 08/28/17 08/28/17 18:59 06:59 18:59 Intake Total 430 / 430 1010 / 1010 50 / 50 Output Total 3000 / 3000 Balance 430 / 430 -1989 / 50 / 50 Weight 127.6 kg Intake: IV 50 / 50 50 / 50 50 / 50 Cleocin 600 mg/NS Premix 600 mg 50 / 50 50 / 50 50 / 50 In 50 ml @ 100 mls/hr IV.SIG Q8H JASIEL Rx#:[id number] Oral 380 / 380 960 / 960 Output: Urine 3000 / 3000 Other: # Voids 3 6 # Bowel Movements 0 Narrative: examination of the left hand: intact dressing and packing purulent material draining after removal of packing mild surrounding redness intact circulation and sensation Results - Labs CBC & Chem 7: 08/28/17 04:30 08/28/17 04:30 Laboratory Results - last 24 hr 08/28/17 08/28/17 04:30 04:30 WBC 7.6 RBC 4.07 Hgb 12.3 Hct 36.9 MCV 90.6 MCH 30.3 MCHC 33.5 RDW 12.7 Plt Count 235 MPV 9.2 Neut % (Auto) 52.0 Lymph % (Auto) 38.4 [place] % (Auto) 7.3 Eos % (Auto) 1.8 Baso % (Auto) 0.5 Neut # (Auto) 4.0 Lymph # (Auto) 2.9 [place] # (Auto) 0.6 Eos # (Auto) 0.1 Baso # (Auto) 0.0 WBC Differential . Differential Comment Auto diff final Sodium 143 Potassium 4.1 Chloride 109 H Carbon Dioxide 27.7 Anion Gap 6 BUN 12 Creatinine 1.08 H Estimated GFR 52 L Random Glucose 84 Calcium 8.8 Microbiology 08/26/17 10:34 Wound - Finger Gram Stain - Final 08/26/17 10:34 Wound - Finger Wound Culture - Preliminary gram negative rods 08/26/17 10:45 Tissue - Finger Gram Stain - Final 08/26/17 10:45 Tissue - Finger Wound Culture - Preliminary No growth in 48 hours Assessment and Plan - Plan packing pulled out. wound washed with normal saline dry dressing applied discontinued clindamycin and percocet added unasyn and ibuprofen range of motion exercises limb elevation hand surgery will follow plan for discharge on monday
[2017-08-28] MEDS: Ampicillin/Sulbactam Inj 3 GM in Sodium Chloride 0.9% Inj 100 ML IV.SIG SCH (18:59)
[2017-08-28] MEDS: Lactobacillus Acidophilus/L. Spores Tablet PO SCH ×2 (21:12→21:19)
[2017-08-29] MEDS: Ampicillin/Sulbactam Inj 3 GM in Sodium Chloride 0.9% Inj 100 ML IV.SIG SCH ×5 (00:42→23:53)
[2017-08-29] MEDS: Levothyroxine 75 MCG Tablet PO SCH (05:40)
[2017-08-29] MEDS: Lactobacillus Acidophilus/L. Spores Tablet PO SCH ×3 (08:44→17:16)
[2017-08-29] MEDS: Senna/Docusate Sodium 8.6/50 MG Tablet PO SCH ×2 (08:44→20:36)
[2017-08-29] MEDS: Lisinopril 5 MG Tablet PO SCH (08:44)
--- NOTE | 2017-08-29 09:26 | P.PNIM ---
Subjective Interval history: no new complaints Physical Exam Vital signs: Vital Signs 08/28/17 12:00 08/28/17 14:36 08/28/17 16:00 Temperature 97.9 F 97.3 F L 97.2 F L Pulse Rate 92 H 94 H 87 Respiratory Rate 20 20 Blood Pressure 120/81 100/53 L 125/73 Pulse Oximetry 97 97 97 08/28/17 20:00 08/29/17 00:00 08/29/17 04:00 Temperature 98.0 F 98.4 F 97.7 F Pulse Rate 86 90 75 Respiratory Rate 18 16 18 Blood Pressure 118/75 121/73 128/79 Pulse Oximetry 99 96 98 Intake & Output 08/28/17 08/29/17 08/29/17 18:59 06:59 18:59 Intake Total 530 / 530 200 / 200 Balance 530 / 530 200 / 200 Weight 69.8 kg Intake: IV 50 / 50 200 / 200 Unasyn Inj 3 GM In NS Inj 100 200 / 200 ML @ 200 mls/hr IV.SIG Q6H JASIEL Rx#:[id number] Cleocin 600 mg/NS Premix 600 mg 50 / 50 In 50 ml @ 100 mls/hr IV.SIG Q8H JASIEL Rx#:[id number] Oral 480 / 480 Other: # Voids 4 # Bowel Movements 0 heart reg lung cta abd s/nt ext left finger heavily wrapped Results - Labs CBC & Chem 7: 08/28/17 04:30 08/28/17 04:30 Microbiology 08/26/17 10:34 Wound - Finger Gram Stain - Final 08/26/17 10:34 Wound - Finger Wound Culture - Preliminary gram negative rods 08/26/17 10:45 Tissue - Finger Gram Stain - Final 08/26/17 10:45 Tissue - Finger Wound Culture - Preliminary No growth in 48 hours Assessment and Plan - Assessment (1) Dog bite Code(s): W54.0XXA - Bitten by dog, initial encounter Status: Acute Plan: Dog Bite Left index finger infection, possible tenosynovitis - Patient is a 67 y/o female with hypertension, hypothyroidism, and hyperlipidemia. - Patient was bit by her dog prior to admission at the distal aspect of her left index finger when patient attempted to take away a bone. Patient reports that her dog is up-to-date on all shots. Patient was seen in urgent care center the wound was sutured and she was prescribed antibiotic. However, patient took only 1 dose of antibiotic the day of admission. Patient reported that she had increased pain, redness, and swelling of her left second finger. Patient states that his suture was removed the day of admission and she was advised to come to the ER for further evaluation and IV antibiotics. - Pt was started on IV Clindamycin at admission - Hand surgeon was consulted - Pt underwent incision and drainage of left index finger pulp and wash and drainage and left index finger flexor tendon sheath on 08/26/17 - surgical cx growing gnr clinda stopped and unasyn started. await final cx and then decide on dc abx. - HTN - continue outpt lisinopril Hypothyroid - continue levothyroxine Hyperlipidemia - continue statin (2) Cellulitis Code(s): L03.90 - Cellulitis, unspecified Status: Acute Plan: - see above (1) Dog bite Qualifiers: Encounter type: subsequent encounter Qualified Code(s): W54.0XXD - Bitten by dog, subsequent encounter (2) Cellulitis Qualifiers: Site of cellulitis: extremity Site of cellulitis of extremity: finger Laterality: left Qualified Code(s): L03.012 - Cellulitis of left finger
--- NOTE | 2017-08-29 17:15 | P.PN ---
Subjective Interval history: complains of mild pain no fever complaint with range of motion Physical Exam Vital signs: Vital Signs 08/28/17 20:00 08/29/17 00:00 08/29/17 04:00 Temperature 98.0 F 98.4 F 97.7 F Pulse Rate 86 90 75 Respiratory Rate 18 16 18 Blood Pressure 118/75 121/73 128/79 Pulse Oximetry 99 96 98 08/29/17 08:00 Temperature 97.8 F Pulse Rate 86 Respiratory Rate 20 Blood Pressure 129/64 Pulse Oximetry 99 Intake & Output 08/28/17 08/29/17 08/29/17 18:59 06:59 18:59 Intake Total 530 / 530 300 / 300 100 / 100 Balance 530 / 530 300 / 300 100 / 100 Weight 69.8 kg Intake: IV 50 / 50 300 / 300 100 / 100 Unasyn Inj 3 GM In NS Inj 100 300 / 300 100 / 100 ML @ 200 mls/hr IV.SIG Q6H JASIEL Rx#:[id number] Cleocin 600 mg/NS Premix 600 mg 50 / 50 In 50 ml @ 100 mls/hr IV.SIG Q8H JASIEL Rx#:[id number] Oral 480 / 480 Other: # Voids 4 # Bowel Movements 0 Narrative: exam of the left index finger: intact dressing decreased swelling and redness mild drainage from the pulp region mild tenderness over the pulp region range of motion has improved intact sensation and circulation cultures: pasteurella Results - Labs CBC & Chem 7: 08/28/17 04:30 08/28/17 04:30 Microbiology 08/26/17 10:45 Tissue - Finger Gram Stain - Final 08/26/17 10:45 Tissue - Finger Wound Culture - Final No growth in 72 hours (aerobically and anaerobically ) 08/26/17 10:34 Wound - Finger Gram Stain - Final 08/26/17 10:34 Wound - Finger Wound Culture - Final Pasteurella multocida Assessment and Plan - Plan packing pulled out. wound washed with normal saline dry dressing applied continue with IV unasyn range of motion exercises limb elevation hand surgery will follow plan for discharge on monday on po augmentin, will see her before discharge
[2017-08-30] MEDS: Levothyroxine 75 MCG Tablet PO SCH (06:17)
[2017-08-30] MEDS: Ampicillin/Sulbactam Inj 3 GM in Sodium Chloride 0.9% Inj 100 ML IV.SIG SCH ×3 (06:17→17:27)
[2017-08-30] MEDS: Lactobacillus Acidophilus/L. Spores Tablet PO SCH ×3 (08:27→17:27)
[2017-08-30] MEDS: Lisinopril 5 MG Tablet PO SCH (08:27)
[2017-08-30] MEDS: Senna/Docusate Sodium 8.6/50 MG Tablet PO SCH (08:27)
--- NOTE | 2017-08-30 11:20 | P.PNIM ---
Subjective Interval history: had some sweats overnight. Physical Exam Vital signs: Vital Signs 08/29/17 12:00 08/29/17 16:00 08/29/17 20:00 Temperature 97.4 F L 98.1 F 98.6 F Pulse Rate 99 H 94 H 99 H Respiratory Rate 20 20 18 Blood Pressure 126/62 115/57 L 126/75 Pulse Oximetry 100 96 100 08/30/17 00:00 08/30/17 04:00 08/30/17 08:00 Temperature 97.8 F 97.8 F 98.3 F Pulse Rate 86 87 94 H Respiratory Rate 18 18 18 Blood Pressure 137/61 141/67 H 127/74 Pulse Oximetry 97 98 98 Intake & Output 08/29/17 08/30/17 08/30/17 18:59 06:59 18:59 Intake Total 920 / 920 340 / 340 Balance 920 / 920 340 / 340 Weight 69.8 kg Intake: IV 200 / 200 100 / 100 Unasyn Inj 3 GM In NS Inj 100 200 / 200 100 / 100 ML @ 200 mls/hr IV.SIG Q6H JASIEL Rx#:[id number] Oral 720 / 720 240 / 240 Other: # Voids 6 2 # Bowel Movements 3 0 right index finger bandaged. Results - Labs CBC & Chem 7: 08/28/17 04:30 08/28/17 04:30 Microbiology 08/26/17 10:45 Tissue - Finger Gram Stain - Final 08/26/17 10:45 Tissue - Finger Wound Culture - Final No growth in 72 hours (aerobically and anaerobically ) 08/26/17 10:34 Wound - Finger Gram Stain - Final 08/26/17 10:34 Wound - Finger Wound Culture - Final Pasteurella multocida Assessment and Plan - Assessment (1) Dog bite Code(s): W54.0XXA - Bitten by dog, initial encounter Status: Acute Plan: Dog Bite Left index finger infection, possible tenosynovitis - Patient is a 67 y/o female with hypertension, hypothyroidism, and hyperlipidemia. - Patient was bit by her dog prior to admission at the distal aspect of her left index finger when patient attempted to take away a bone. Patient reports that her dog is up-to-date on all shots. Patient was seen in urgent care center the wound was sutured and she was prescribed antibiotic. However, patient took only 1 dose of antibiotic the day of admission. Patient reported that she had increased pain, redness, and swelling of her left second finger. Patient states that his suture was removed the day of admission and she was advised to come to the ER for further evaluation and IV antibiotics. - Pt was started on IV Clindamycin at admission - Hand surgeon was consulted - Pt underwent incision and drainage of left index finger pulp and wash and drainage and left index finger flexor tendon sheath on 08/26/17 - surgical cx growing gnr clinda stopped and unasyn started. cx showing pasteurella multocida. will dc on augmentin today after seen by hand surgery. get wound care and f/u info from Hand. HTN - continue outpt lisinopril Hypothyroid - continue levothyroxine Hyperlipidemia - continue statin (2) Cellulitis Code(s): L03.90 - Cellulitis, unspecified Status: Acute Plan: - see above (1) Dog bite Qualifiers: Encounter type: subsequent encounter Qualified Code(s): W54.0XXD - Bitten by dog, subsequent encounter (2) Cellulitis Qualifiers: Site of cellulitis: extremity Site of cellulitis of extremity: finger Laterality: left Qualified Code(s): L03.012 - Cellulitis of left finger
--- NOTE | 2017-09-02 16:19 | P.DS ---
Date of admission: 08/25/17 22:51 Primary care physician: Kendrick Hernandez MD Attending physician on discharge: Antonino Nunez Anticipated date of discharge: 08/30/17 Brief History from admission: Patient is a pleasant 67-year-old female with history of hypertension, hypothyroidism, and hyperlipidemia. Patient was bit by her dog yesterday at the distal aspect of her left index finger when patient attempted to take away a bone. Patient reports that her dog is up-to-date on all shots. Patient was seen in urgent care center and prescribed antibiotic. However, patient took only 1 dose of antibiotic today. Patient reports that over the last 24 hours she has had increased pain, redness , and swelling of her left second finger. Patient states that his suture was removed today and she was advised to come to the ER for further evaluation and IV antibiotics. Patient states that redness with going up the anterior aspect of her left forearm. Patient complains of severe pain and difficulty bending her second digit. Patient denies fever chills. Hand surgeon has been consulted by the ER. Patient will be continued on IV antibiotics. Patient will be admitted to [facility] for further evaluation treatment. PMH - Htn - hypothyroid - hyperlipidemia - plantar fascitis PSH - Right foot surgery for plantar fascitis, performed by Dr. 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 Patient was bit by her dog prior to admission at the distal aspect of her left index finger when patient attempted to take away a bone. Patient reports that her dog is up-to-date on all shots. Patient was seen in urgent care center the wound was sutured and she was prescribed antibiotic. However, patient took only 1 dose of antibiotic the day of admission. Patient reported that she had increased pain, redness, and swelling of her left second finger. Patient states that his suture was removed the day of admission and she was advised to come to the ER for further evaluation and IV antibiotics. Pt was started on IV Clindamycin at admission. Hand surgeon was consulted. Pt underwent incision and drainage of left index finger pulp and wash and drainage and left index finger flexor tendon sheath on 08/26/[address] Blount. Clinda stopped and Unasyn started on 08/28/17. Surgical cx growing pasteurella multocida. Pt was discharged on Augmentin TID x 10 days. Wound care and f/u info per Hand Surgery HTN - continue outpt lisinopril Hypothyroid - continue levothyroxine Hyperlipidemia - continue statin - Time Spent with Patient Total time spent providing and/or coordinating discharge services: - Quality: VTE Deep Vein Thrombosis/Pulmonary Embolism Present on Admission: No Results Procedures completed during hospitalization: See summary above Discharge Plan - Discharge Disposition Patient Disposition: 01 Discharge Home - Discharge Condition Condition: Stable - Discharge Order Discharge Orders: Discharge Order (Routine); Ordered 08/30/17 Ordered By: Antonino Nunez - Discharge Details Anticipated Discharge Date: 08/30/17 Discharge Comment: discharge home after seen by Hand Surgery today. Check with Hand surgery for f/u appt and any - Physicians Team Primary Care Provider: Kendrick Hernandez Attending Provider: Edmund Byrne Other Providers: Darion Blount MD
== END 2017-08-30 18:45 | disposition home or self-care (01) ==
LOC: NEPC 17:02 → NEDA 17:02 → N04 22:50
PROVIDERS: ADMIT Hospitalist; ATTEND Hospitalist